=== PATIENT | female | born 1955 | race Caucasian/White ===

== ENCOUNTER 2016-10-14 20:47 | Emergency (ER) | payer BC ==
[2016-10-14] MEDS ORDERED: ASPIRIN 81 MG CHEW TAB ONE (21:22)
[2016-10-14] MEDS ORDERED: KETOROLAC 30 MG/ML VIAL ONE (21:39)
== END 2016-10-15 01:18 | disposition home or self-care (01) ==
LOC: ER 20:47
DX: R07.89 Other chest pain (principal); R20.9 Unspecified disturbances of skin sensation
CPT/HCPCS: 36415; 70450; 71010; 80053; 82550; 83735; 84484; 85025; 85610; 85730; 93005; 96374

== ENCOUNTER 2016-10-17 15:50 | Observation (INO) | payer BC ==
[~2016-10-17] VITALS: Ht 172.7 cm; Wt 61.4 kg
[2016-10-17] MEDS ORDERED: ASPIRIN 300 MG SUPP RECTAL ONE (18:49)
[2016-10-17] MEDS ORDERED: ONDANSETRON 4 MG VIAL ONE (19:33)
[2016-10-17] MEDS ORDERED: ACETAMINOPHEN 325 MG TAB PO PRN (19:45)
[2016-10-17] MEDS ORDERED: SALINE FLUSH 10 ML FLUSH PRN (19:45)
[2016-10-17 20:32] VITALS: BP_SYST 145; TEMP 98.6
[2016-10-17 20:51] VITALS: Ht 172.7 cm; Wt 61.4 kg
[2016-10-17] MEDS ORDERED: Atorvastatin 20 MG TAB PO SCH (21:00)
[2016-10-17 22:00] VITALS: BP_SYST 165; RESP 18; TEMP 98.1
[2016-10-17] MEDS ORDERED: TEMAZEPAM 15 MG CAP PO PRN (22:10)
[2016-10-17] MEDS ORDERED: LORAZEPAM 2 MG/ML VIAL IV PRN (22:25)
[2016-10-17] MEDS ORDERED: LIDOCAINE 2% VISC 15 ML UDC ONE (22:25)
[2016-10-17] MEDS ORDERED: DILAUDID 1 MG/ML AMP IV PRN (22:25)
[2016-10-17] MEDS: FAMOTIDINE 20 MG TAB PO SCH (23:06)
[2016-10-17 23:10] VITALS: RESP 18
[2016-10-17] MEDS: OXYCODONE/APAP 5/325 TAB PO PRN (23:14)
[2016-10-18 00:01] VITALS: BP_SYST 137; RESP 18; TEMP 97.2
[2016-10-18] MEDS: SALINE FLUSH 10 ML FLUSH SCH ×2 (00:45→08:28)
[2016-10-18 03:26] VITALS: BP_SYST 113; RESP 17; TEMP 97.7
[2016-10-18] MEDS ORDERED: ONDANSETRON 4 MG VIAL IV PRN (04:35)
[2016-10-18] MEDS ORDERED: SODIUM CHLORIDE 0.9% FLUSH BAG 500 ML IV SCH (06:00)
[2016-10-18 07:30] VITALS: BP_SYST 116; RESP 18; TEMP 97.8
[2016-10-18] MEDS: FAMOTIDINE 20 MG TAB PO SCH (08:28)
[2016-10-18] MEDS: OXYCODONE/APAP 5/325 TAB PO PRN (08:29)
[2016-10-18] MEDS ORDERED: Aspirin 325 MG TAB PO SCH (09:00)
[2016-10-18] MEDS ORDERED: IRBESARTAN 75 MG TAB PO SCH (09:00)
[2016-10-18 11:14] VITALS: BP_SYST 116; RESP 18; TEMP 97.8
[2016-10-18] MEDS ORDERED: TIZANIDINE 4 MG TAB PO SCH (21:00)
[2016-10-18] MEDS ORDERED: TRAZODONE 100 MG TAB PO SCH (21:00)
[2016-10-18] MEDS ORDERED: Atorvastatin 10 MG TAB PO SCH (21:00)
== END 2016-10-18 11:40 | disposition home or self-care (01) ==
LOC: ENRESERVDT → ENRESERVTM → ENRESERV → ER 15:50 → EMR 19:41 → ENPENDDIS 19:41 → INTOOBSV 19:41 → PCU 20:31 → UNDODISIN 10-18 11:40
PROVIDERS: ADMIT Internal Medicine; ATTEND Internal Medicine
DX: G45.9 Transient cerebral ischemic attack, unspecified (principal); I10 Essential (primary) hypertension; I34.1 Nonrheumatic mitral (valve) prolapse; Z98.1 Arthrodesis status; J45.909 Unspecified asthma, uncomplicated; G47.00 Insomnia, unspecified; M54.5 Low back pain; R07.9 Chest pain, unspecified; E78.5 Hyperlipidemia, unspecified; F41.1 Generalized anxiety disorder
CPT/HCPCS: 36415; 70450; 70551; 71010; 80048; 80053; 80061; 81001; 81241; 82378; 82553; 82607; 82746; 82947; 83090; 84439; 84443; 84484; 85025; 85300; 85303; 85306; 85384; 85610; 85613; 85730; 85732; 86038; 86141; 86147; 93005; 93306; 93880; 94799; 95819; 96374; 99222; 99238

== ENCOUNTER 2016-10-19 15:58 | Inpatient (IN) | payer BC ==
[~2016-10-19] VITALS: Ht 172.7 cm; Wt 61.7 kg
[2016-10-19] MEDS ORDERED: ACETAMINOPHEN 325 MG TAB PO PRN (17:35)
[2016-10-19] MEDS ORDERED: MAG HYDROX 30 ML UDC PO PRN (17:35)
[2016-10-19] MEDS ORDERED: SALINE FLUSH 10 ML FLUSH PRN (17:35)
[2016-10-19] MEDS ORDERED: ALU/MAG/SIM 30 ML UDC PO PRN (17:35)
[2016-10-19] MEDS ORDERED: TEMAZEPAM 7.5 MG CAP PO PRN (17:35)
[2016-10-19] MEDS ORDERED: BISACODYL EC 5 MG TAB PO PRN (17:35)
[2016-10-19] MEDS ORDERED: BISACODYL 10 MG SUPP RECTAL PRN (17:35)
[2016-10-19] MEDS: IRBESARTAN 75 MG TAB PO SCH (17:35)
[2016-10-19] MEDS ORDERED: OPTIRAY 350 100 ML VIAL HMH IV ONE (19:10)
[2016-10-19 21:24] VITALS: BP_SYST 132; BP_SYST 133; RESP 16; TEMP 98.2
[2016-10-19 21:26] VITALS: BMI 21.6
[2016-10-19] MEDS: OXYCODONE/APAP 5/325 TAB PO PRN (21:46)
[2016-10-19] MEDS: CHOLECALCIFEROL 5,000 UNITS CAP PO SCH (22:21)
[2016-10-19] MEDS: Aspirin 325 MG TAB PO SCH (22:22)
[2016-10-19] MEDS: TIZANIDINE 4 MG TAB PO SCH (22:22)
[2016-10-19] MEDS: Atorvastatin 10 MG TAB PO SCH (22:23)
[2016-10-19] MEDS: TRAZODONE 100 MG TAB PO SCH (22:23)
[2016-10-19] MEDS: MULTIVITS/MINERALS (THERAGRAN M) TAB PO SCH (22:23)
[2016-10-19] MEDS: SALINE FLUSH 10 ML FLUSH SCH (22:23)
[2016-10-19] MEDS: hePARIN in D5W (40 UNITS/ML) 500 ML IV SCH (22:27)
[2016-10-19 22:50] VITALS: RESP 20
[2016-10-19] MEDS: TEMAZEPAM 15 MG CAP PO PRN (23:17)
[2016-10-19 23:37] VITALS: BP_SYST 127; RESP 16; TEMP 97.3
[2016-10-20] VITALS (8 sets, daily range): BP systolic 95–132; RESP 16–20; TEMP 97.3–98.6; Ht 172.7 cm; Wt 61.7 kg
[2016-10-20] MEDS: PANTOPRAZOLE 40 MG TAB PO SCH (05:21)
[2016-10-20] MEDS: OXYCODONE/APAP 5/325 TAB PO PRN ×4 (05:22→23:04)
[2016-10-20] MEDS: Aspirin 325 MG TAB PO SCH (08:58)
[2016-10-20] MEDS: MULTIVITS/MINERALS (THERAGRAN M) TAB PO SCH (08:58)
[2016-10-20] MEDS: SALINE FLUSH 10 ML FLUSH SCH ×2 (08:58→20:00)
[2016-10-20] MEDS: IRBESARTAN 75 MG TAB PO SCH (08:58)
[2016-10-20] MEDS: CHOLECALCIFEROL 5,000 UNITS CAP PO SCH (08:58)
[2016-10-20] MEDS: ONDANSETRON 4 MG VIAL IV PRN ×2 (08:58→14:52)
[2016-10-20] MEDS: SODIUM CHLORIDE 0.9% FLUSH BAG 500 ML IV SCH (12:05)
[2016-10-20] MEDS ORDERED: MISSING DOSE XX ONE (18:45)
[2016-10-20] MEDS: TIZANIDINE 4 MG TAB PO SCH (20:43)
[2016-10-20] MEDS: Atorvastatin 10 MG TAB PO SCH (20:43)
[2016-10-20] MEDS: hePARIN in D5W (40 UNITS/ML) 500 ML IV SCH ×2 (20:52→22:00)
[2016-10-20] MEDS: LEVETIRACETAM 500 MG TAB PO SCH (21:00)
[2016-10-20] MEDS: TRAZODONE 100 MG TAB PO SCH (21:34)
[2016-10-21] MEDS: TEMAZEPAM 15 MG CAP PO PRN ×2 (03:10→22:29)
[2016-10-21 04:09] VITALS: BP_SYST 106; RESP 18; TEMP 97.7
[2016-10-21] MEDS: SODIUM CHLORIDE 0.9% FLUSH BAG 500 ML IV SCH (05:00)
[2016-10-21] MEDS: PANTOPRAZOLE 40 MG TAB PO SCH (05:50)
[2016-10-21] MEDS: OXYCODONE/APAP 5/325 TAB PO PRN ×3 (06:29→22:38)
[2016-10-21] MEDS: ONDANSETRON 4 MG VIAL IV PRN ×2 (06:38→11:31)
[2016-10-21 07:45] VITALS: BP_SYST 94; RESP 18; TEMP 97.2
[2016-10-21] MEDS: LEVETIRACETAM 500 MG TAB PO SCH ×2 (09:41→22:29)
[2016-10-21] MEDS: Aspirin 325 MG TAB PO SCH (09:41)
[2016-10-21] MEDS: SALINE FLUSH 10 ML FLUSH SCH ×2 (09:41→22:29)
[2016-10-21] MEDS: IRBESARTAN 75 MG TAB PO SCH (09:41)
[2016-10-21] MEDS: CHOLECALCIFEROL 5,000 UNITS CAP PO SCH (09:41)
[2016-10-21] MEDS: MULTIVITS/MINERALS (THERAGRAN M) TAB PO SCH (09:41)
[2016-10-21] MEDS: ESTRADIOL TRANSDERM SCH (11:31)
[2016-10-21 11:48] VITALS: BP_SYST 102; RESP 16; TEMP 98.1
[2016-10-21] MEDS ORDERED: MAALOX 30 ML, LIDOCAINE 2% VISC 10 ML PO PRN ×2 (16:00)
[2016-10-21] MEDS ORDERED: MAALOX 30 ML, LIDOCAINE 2% VISC 10 ML PO ONE ×2 (16:00)
[2016-10-21 16:03] VITALS: BP_SYST 113; RESP 16; TEMP 98.4
[2016-10-21] MEDS ORDERED: MISSING DOSE XX ONE (17:05)
[2016-10-21] MEDS: hePARIN in D5W (40 UNITS/ML) 500 ML IV SCH (17:36)
[2016-10-21] MEDS ORDERED: PANTOPRAZOLE 40 MG VIAL IV ONE (17:50)
[2016-10-21 19:22] VITALS: BP_SYST 102; RESP 20; TEMP 98.1
[2016-10-21] MEDS: Atorvastatin 10 MG TAB PO SCH (22:29)
[2016-10-21] MEDS: TIZANIDINE 4 MG TAB PO SCH (22:29)
[2016-10-21] MEDS: TRAZODONE 100 MG TAB PO SCH (22:30)
[2016-10-21 22:35] VITALS: BP_SYST 105; RESP 18; TEMP 97.6
[2016-10-22 03:14] VITALS: BP_SYST 107; RESP 16; TEMP 97.6
[2016-10-22] MEDS: SODIUM CHLORIDE 0.9% FLUSH BAG 500 ML IV SCH (04:21)
[2016-10-22] MEDS: PANTOPRAZOLE 40 MG TAB PO SCH (05:54)
[2016-10-22] MEDS: ONDANSETRON 4 MG VIAL IV PRN ×2 (05:54→17:22)
[2016-10-22] MEDS: OXYCODONE/APAP 5/325 TAB PO PRN ×4 (06:48→22:17)
[2016-10-22 07:49] VITALS: BP_SYST 110; RESP 18; TEMP 97.5
[2016-10-22] MEDS: IRBESARTAN 75 MG TAB PO SCH ×2 (08:45→08:48)
[2016-10-22] MEDS: MULTIVITS/MINERALS (THERAGRAN M) TAB PO SCH (08:45)
[2016-10-22] MEDS: LEVETIRACETAM 500 MG TAB PO SCH ×2 (08:45→22:16)
[2016-10-22] MEDS: CHOLECALCIFEROL 5,000 UNITS CAP PO SCH (08:45)
[2016-10-22] MEDS ORDERED: ENOXAPARIN 40 MG/0.4 ML SYR SUBQ SCH ×2 (09:00)
[2016-10-22] MEDS: SALINE FLUSH 10 ML FLUSH SCH ×2 (09:56→22:16)
[2016-10-22 11:40] VITALS: BP_SYST 110; RESP 16; TEMP 98.3
[2016-10-22] MEDS ORDERED: ESTRADIOL TRANSDERM SCH (12:00)
[2016-10-22 15:52] VITALS: BP_SYST 115; RESP 18; TEMP 98.1
[2016-10-22 19:22] VITALS: BP_SYST 103; RESP 18; TEMP 97.9
[2016-10-22] MEDS: PANTOPRAZOLE 40 MG VIAL IV SCH (22:16)
[2016-10-22] MEDS: TIZANIDINE 4 MG TAB PO SCH (22:16)
[2016-10-22] MEDS: TEMAZEPAM 15 MG CAP PO PRN (22:16)
[2016-10-22] MEDS: TRAZODONE 100 MG TAB PO SCH (22:16)
[2016-10-22 23:14] VITALS: BP_SYST 105; RESP 16; TEMP 98
[2016-10-23] VITALS (7 sets, daily range): BP systolic 97–122; RESP 16–20; TEMP 97.2–98.6
[2016-10-23] MEDS: SODIUM CHLORIDE 0.9% FLUSH BAG 500 ML IV SCH (03:39)
[2016-10-23] MEDS: OXYCODONE/APAP 5/325 TAB PO PRN ×2 (05:58→20:49)
[2016-10-23] MEDS: ONDANSETRON 4 MG VIAL IV PRN ×2 (07:35→16:31)
[2016-10-23] MEDS: SALINE FLUSH 10 ML FLUSH SCH ×2 (07:35→19:38)
[2016-10-23] MEDS: LEVETIRACETAM 500 MG TAB PO SCH ×2 (08:47→20:47)
[2016-10-23] MEDS: PANTOPRAZOLE 40 MG VIAL IV SCH ×2 (08:47→19:38)
[2016-10-23] MEDS: CHOLECALCIFEROL 5,000 UNITS CAP PO SCH (08:47)
[2016-10-23] MEDS: MULTIVITS/MINERALS (THERAGRAN M) TAB PO SCH (08:47)
[2016-10-23] MEDS: IRBESARTAN 75 MG TAB PO SCH (08:47)
[2016-10-23] MEDS ORDERED: ENOXAPARIN 40 MG/0.4 ML SYR SUBQ ONE (11:45)
[2016-10-23] MEDS ORDERED: OXYCODONE/APAP 5/325 TAB PO ONE (12:50)
[2016-10-23] MEDS: TIZANIDINE 4 MG TAB PO SCH (20:47)
[2016-10-23] MEDS: TRAZODONE 100 MG TAB PO SCH (20:47)
[2016-10-23] MEDS: TEMAZEPAM 15 MG CAP PO PRN (22:16)
[2016-10-24] VITALS (9 sets, daily range): BP systolic 98–122; RESP 16–20; TEMP 97.3–97.9
[2016-10-24] MEDS: ONDANSETRON 4 MG VIAL IV PRN ×2 (05:05→09:29)
[2016-10-24] MEDS: OXYCODONE/APAP 5/325 TAB PO PRN ×4 (05:06→20:47)
[2016-10-24] MEDS: SODIUM CHLORIDE 0.9% FLUSH BAG 500 ML IV SCH (05:31)
[2016-10-24] MEDS: PANTOPRAZOLE 40 MG VIAL IV SCH ×2 (08:09→20:47)
[2016-10-24] MEDS: SALINE FLUSH 10 ML FLUSH SCH ×2 (08:09→20:46)
[2016-10-24] MEDS: LEVETIRACETAM 500 MG TAB PO SCH ×2 (08:11→21:43)
[2016-10-24] MEDS: CHOLECALCIFEROL 5,000 UNITS CAP PO SCH (08:11)
[2016-10-24] MEDS: MULTIVITS/MINERALS (THERAGRAN M) TAB PO SCH (08:11)
[2016-10-24] MEDS: IRBESARTAN 75 MG TAB PO SCH ×2 (08:12→14:02)
[2016-10-24] MEDS: ESTRADIOL TRANSDERM SCH (08:12)
[2016-10-24] MEDS ORDERED: MISSING DOSE XX ONE (09:25)
[2016-10-24] MEDS ORDERED: LIDOCAINE 2% 20 ML INJ ONE (12:12)
[2016-10-24] MEDS ORDERED: SOD BICARB 8.4% VIAL 50 ML IV ONE (12:12)
[2016-10-24] MEDS: TRAZODONE 100 MG TAB PO SCH (21:43)
[2016-10-24] MEDS: TIZANIDINE 4 MG TAB PO SCH (21:43)
[2016-10-24] MEDS: TEMAZEPAM 15 MG CAP PO PRN (21:43)
[2016-10-25 03:12] VITALS: BP_SYST 105; RESP 16; TEMP 97.5
[2016-10-25] MEDS: OXYCODONE/APAP 5/325 TAB PO PRN ×2 (04:45→12:04)
[2016-10-25] MEDS: SODIUM CHLORIDE 0.9% FLUSH BAG 500 ML IV SCH (05:27)
[2016-10-25 07:43] VITALS: BP_SYST 109; RESP 16; TEMP 97.6
[2016-10-25] MEDS: LEVETIRACETAM 500 MG TAB PO SCH (08:30)
[2016-10-25] MEDS: CHOLECALCIFEROL 5,000 UNITS CAP PO SCH (08:30)
[2016-10-25] MEDS: MULTIVITS/MINERALS (THERAGRAN M) TAB PO SCH (08:30)
[2016-10-25] MEDS: PANTOPRAZOLE 40 MG VIAL IV SCH (08:31)
[2016-10-25] MEDS: IRBESARTAN 75 MG TAB PO SCH (08:31)
[2016-10-25] MEDS: SALINE FLUSH 10 ML FLUSH SCH (08:31)
[2016-10-25] MEDS ORDERED: ENOXAPARIN 40 MG/0.4 ML SYR SUBQ SCH (09:00)
[2016-10-25 10:54] VITALS: BP_SYST 109; RESP 16; TEMP 97.6
[2016-10-25 11:13] VITALS: BP_SYST 106; RESP 16; TEMP 97.7
== END 2016-10-25 13:47 | disposition home or self-care (01) | DRG 69 ==
LOC: ENRESERVDT → CANRESERV → ENRESERVTM → ER 15:58 → ENPENDDIS 18:06 → EMR 18:06 → PCU 20:56 → PCU2 10-20 07:21
PROVIDERS: ADMIT Internal Medicine; ATTEND Internal Medicine
PROC: 009U3ZX Drainage of Spinal Canal, Percutaneous Approach, Diagnostic (ICD-10-PCS; principal; 2016-10-24)
DX: G45.9 Transient cerebral ischemic attack, unspecified (principal); R56.9 Unspecified convulsions; I10 Essential (primary) hypertension; E78.5 Hyperlipidemia, unspecified; M54.9 Dorsalgia, unspecified; K21.9 Gastro-esophageal reflux disease without esophagitis; E55.9 Vitamin D deficiency, unspecified; Z79.82 Long term (current) use of aspirin
CPT/HCPCS: 36415; 62270; 70450; 70496; 70498; 71010; 77003; 80048; 80053; 80061; 81241; 82040; 82042; 82438; 82553; 82607; 82746; 82784; 82945; 82947; 83090; 83520; 83735; 83873; 83916; 84157; 84439; 84443; 84484; 85025; 85300; 85384; 85610; 85652; 85730; 86038; 86141; 86431; 86592; 86618; 86694; 87071; 87102; 87116; 87205; 87206; 87327; 88108; 89051; 93005; 94799; 99222; 99232; 99233; 99239